=== PATIENT | female | born 1985 | race Caucasian/White ===

== ENCOUNTER → 2017-08-31 11:38 | Outpatient (CLI) | payer OTHER, SELFPAY ==
[2017-08-31 11:41] LABS: Microscopic, Urine URINE MICROSCOPIC (MICROSCOPIC)
[2017-08-31 12:18] LABS: Basophils # 0.1 K/mm3 (0-0.2); Basophils % 0.5 % (0.1-2.0); Eosinophils # 0.1 K/mm3 (0.0-0.4); Eosinophils % 1.3 % (0.1-12.0); Hematocrit 42.2 % (37.0-47.0); Hemoglobin 13.9 g/dL (12.2-16.2); Lymphocytes # 3.2 K/mm3 (0.7-4.5); Lymphocytes % 32.7 K/mm3 (10-50); Mean Corpuscular HGB Conc 32.9 g/dL (31.8-35.4); Mean Corpuscular Hemoglobin 30.1 pg (27.0-31.2); Mean Corpuscular Volume 91.6 fl (81-99); Monocytes # 0.4 K/mm3 (0.1-1.0); Monocytes % 3.5 % (1.7-9.3); Neutrophils # 6.1 K/mm3 (1.8-7.8); Neutrophils % 61.9 % (37.0-80.0); Platelet Count 373 K/mm3 (142-424); Red Cell Distribution Width 12.2 % (11.5-17.5); White Blood Count 9.9 K/mm3 (4.8-10.8)
[2017-08-31 12:19] LABS: Appearance,Urine CLOUDY (Clear); Bilirubin,Urine Negative (Negative); Blood, Urine 2+ (Negative); Color,Urine YELLOW (Yellow); Glucose,Urine (UA) Negative (Negative); Ketones,Urine Negative (Negative); Leukocyte Esterase,Urine TRACE (Negative); Nitrate,Urine Negative (Negative); PH,Urine 5.5 (5.0-8.5); Protein,Urine Negative (Negative); Specific Gravity, Urine >= 1.030 (1.005-1.030); Urobilinogen,Urine 0.2 EU/dl (0.2)
[2017-08-31 12:27] LABS: Bacteria,Urine 4+ /lpf; Mucus,Urine 4+ /lpf
[2017-08-31 13:20] LABS: Alanine Aminotransferase 29 U/L (12-78); Albumin Level 4.1 gm/dL (3.4-5.0); Albumin/Globulin Ratio 1.1 (1.1-1.8); Alkaline Phosphatase 79 U/L (46-116); Anion Gap 17.1 mEq/L (5-15); Aspartate Amino Transferase 19 U/L (15-37); Bilirubin,Total 0.8 mg/dL (0.2-1.0); Blood Urea Nitrogen 12 mg/dL (7-18); Carbon Dioxide 21 mmol/L (21.0-32.0); Chloride 104 mmol/L (98-107); Creatinine,Serum 0.75 mg/dL (0.55-1.02); Estimated Glomerular Filt Rate 90 ml/min (>60); GFR (African American) 108 ML/MIN (>60); Globulin 3.9 gm/dl (1.3-3.2); Glucose 143 mg/dL (74-106); Potassium 4.1 mmoL/L (3.5-5.1); Sodium 138 mmol/L (136-145)
== END ==
PROVIDERS: Visit Provider Obstetrics & Gynecology
DX: Z01.818 Encounter for other preprocedural examination (principal)
CPT/HCPCS: 36415; 80053; 81001; 85025; 87086

== ENCOUNTER 2017-09-04 06:03 | Day surgery (SDC) | payer OTHER, SELFPAY ==
[2017-09-03 13:48] VITALS: BMI 33.7
[2017-09-04] VITALS (9 sets, daily range): BP systolic 96–128; BP diastolic 59–92; PULSE 79–103; RESP 16–22; TEMP 36.4–36.7; O2SAT 91–100
[2017-09-04 06:24] LABS: Urine Pregnancy, HCG Qual. Negative (Negative)
--- NOTE | 2017-09-04 06:57 | HMH.ANESCL ---
[facility] Anesthesia Checklist - Patient Identification Patient Identification: Arm Band - Structural Data Admitted From: Home Consent for Planned Operative Procedure(s) Verified: Yes Verified Documents: Surgical Consent, History and Physical - NPO Status Verified Time NPO: 00:00 - Additional verifications Patient : No Anesthesia Reactions: No - Airway Assessment C-Spine Mobility Assessed: Yes TMJ Mobility Assessed: Yes Dentition: Good Dentition - Neurological Assessment Level of Consciousness: Awake Hx Seizures: No Numbness or tingling in extremities: No - Anesthesia Plan Anesthesia Risk discussed: Yes Anesthesia Plan: Verified ASA Class: II Anesthesia Type: General [facility] Anesthesia HX I have reviewed the patient's past medical history: Yes Medical History: Denies:: Cancer, Diabetes Mellitus Type 1, Diabetes Mellitus Type 2, MRSA, Seizures Other Medical History: Reports: Other. Denies: Blood Transfusion Reaction Amputation: No Fractures: No *Family Hx:: Coronary Artery Disease, Heart Attack, Hypertension
--- NOTE | 2017-09-04 07:33 | HMH.OPNOTE ---
Date of procedure: 09/04/17 Pre-op Diagnosis:: Cervical dysplasia Post-op Diagnosis:: Cervical dysplasia Procedure performed:: Dilatation and curettage, cone biopsy of the cervix Surgeon:: Gerardo Gtz MD DAIRY MANAGER:: Other (Lb Adame DAIRY MANAGER) Anesthesia: GETA Estimated blood loss (mL): 30 Operative findings:: Cervical dysplasia Operative note:: After the patient was prepped and draped in usual fashion and general anesthesia was admitted, a weighted speculum was placed within the posterior fourchette of the vagina, and the cervix was bathed in Lugol's solution, nonstaining areas being noted. The anterior lip of the cervix was grasped with a single tooth tenaculum, and the uterus was sounded to 7 cm, and easily dilated to #14 Hegar dilators. A sharp curette was introduced into the endometrial cavity, with retrieval of a small amount of mucoid tissue. The cervix was then infused with a dilute solution of Marcaine, as a local anesthetic, and dilute Pitressin, for hemostasis. Ligatures of 2-0 Vicryl were placed at 3 and 9:00, also for hemostasis. Using a #11 blade, a wide shallow cone was cut, encompassing all nonstaining areas. The base was excised, and the cone edges were cauterized. Monsell's solution was used for further hemostasis. The sponge and needle counts correct. The estimated blood loss was 30 cc. The patient tolerated the procedure well, and was taken to PACU in excellent condition. She will be discharged today, if her vital signs are stable. Condition: stable Disposition: same day Specimens:: Uterine curettings and cervical cone Complications:: None
--- NOTE | 2017-09-04 07:37 | P.OP_ITS ---
Date of procedure: 09/04/17 Pre-op Diagnosis:: Cervical dysplasia Post-op Diagnosis:: Cervical dysplasia Procedure performed:: Dilatation and curettage, cone biopsy of the cervix Surgeon:: Gerardo Gtz MD INFORMATION TECHNOLOGY ARCHITECT:: Other (Lb Adame INFORMATION TECHNOLOGY ARCHITECT) Anesthesia: GETA Estimated blood loss (mL): 30 Operative findings:: Cervical dysplasia Operative note:: After the patient was prepped and draped in usual fashion and general anesthesia was admitted, a weighted speculum was placed within the posterior fourchette of the vagina, and the cervix was bathed in Lugol's solution, nonstaining areas being noted. The anterior lip of the cervix was grasped with a single tooth tenaculum, and the uterus was sounded to 7 cm, and easily dilated to #14 Hegar dilators. A sharp curette was introduced into the endometrial cavity, with retrieval of a small amount of mucoid tissue. The cervix was then infused with a dilute solution of Marcaine, as a local anesthetic, and dilute Pitressin, for hemostasis. Ligatures of 2-0 Vicryl were placed at 3 and 9:00, also for hemostasis. Using a #11 blade, a wide shallow cone was cut, encompassing all nonstaining areas. The base was excised, and the cone edges were cauterized. Monsell's solution was used for further hemostasis. The sponge and needle counts correct. The estimated blood loss was 30 cc. The patient tolerated the procedure well, and was taken to PACU in excellent condition. She will be discharged today, if her vital signs are stable. Condition: stable Disposition: same day Specimens:: Uterine curettings and cervical cone Complications:: None
--- NOTE | 2017-09-04 07:42 | HMH.ANESI ---
[facility] Anesthesia Record Part I Intake, IV Amount: 700 Estimated blood loss (mL): 40 Urine output (mL): 0 Blood Products used (#): none Blood Pressure: 108/59 SaO2: 91 Pulse Rate: 89 Respiratory Rate: 16 Temperature: 97.6 F Patient is:: Drowsy Stable to PACU at:: 07:37
--- NOTE | 2017-09-04 07:43 | HMH.ANESII ---
[facility] Anesthesia Record Part II Discharge Time: 08:07 Destination: [facility] PACU nurse assessment reviewed?: Yes Patient Condition:: Good Anesthesia Complications:: None
--- NOTE | 2017-09-04 07:44 | P.PN_ITS ---
[facility] Anesthesia Record Part II Discharge Time: 08:07 Destination: [facility] PACU nurse assessment reviewed?: Yes Patient Condition:: Good Anesthesia Complications:: None
[2017-09-04 08:37] LABS: Hematocrit 38.7 % (37.0-47.0); Hemoglobin 12.5 g/dL (12.2-16.2)
== END 2017-09-04 08:48 | disposition home or self-care (01) ==
LOC: OR 06:05
PROVIDERS: Visit Provider Obstetrics & Gynecology
PROC: (CPT 57520; principal; 2017-09-04 07:30)
DX: N87.9 Dysplasia of cervix uteri, unspecified (principal)
CPT/HCPCS: 57520; 36415; 81025; 85014; 85018; 96372; 96374; J2405

== ENCOUNTER 2020-07-10 11:16 | Emergency (ER) | payer OTHER, SELFPAY ==
[2020-07-10 11:35] VITALS: BP 126/88; PULSE 102; RESP 19; TEMP 36.9; O2SAT 98; BMI 38.4
[2020-07-10 11:43] VITALS: BP 126/88; PULSE 102; RESP 19; TEMP 36.9; O2SAT 98
--- NOTE | 2020-07-10 11:45 | HMH.EDUTC ---
[facility] [place] Clinical Impression: Nausea vomiting and diarrhea, Cough Disposition: Home, Self-Care Condition on Discharge: Good Instructions: Cough, Nausea and Vomiting-Adult, Diarrhea, DI for COVID-19 (Suspected or Confirmed ), Coronavirus Disease 2019, Preventing the Spread of Coronavirus Discharge Instructions Additional Instructions: *Monitor Temp, Over the counter Motrin or Tylenol as directed/as needed Tylenol every 4 hours and Motrin every 6 hours (as long as your family doctor has told you that you can take it) for fever or pain. and straight to ER if unable to lower temp less than 101.0 after medication given *Warm salt water gargles may help to soothe the throat *Throat Lozenges *Warm fluids like tea with honey may help to soothe the throat *Sleep elevated *Humidifier/Vaporizer ? Avoid fruit juices, as these do not replace minerals and can actually increase diarrhea. ? Children and adults can use sports drinks to replenish electrolytes. Younger children and infants should use products formulated for children, like oral rehydration solutions. ? Eat food in small amounts and let your stomach recover. ? Get lots of rest. You may feel tired or weak. ? No greasy or fried foods for the next 24-48 hours BRAT diet Bananas Rice Apples and Toone ? Make sure to drink plenty of liquids ? Return if needed ? Straight to ER if any life threatening symptoms ? Zofran as prescribed ? Follow up with family doctor in the next 48-72 hours if no improvement or any worsening of symptoms Follow up IMMEDIATELY for new or worsening symptoms or no Noticeable improvement over the next 48-72 hours. 911 for difficulty breathing or swallowing You were tested for today for COVID19 your test result should be back in the next 24-48 hours, you may call to the [facility] to see if your test results are back in the next 48 hours [phone] [facility] hours are 9am-9pm You was given a handout with instructions for Self Quarantine and Self isolation for while you wait on test results and what to do if they are positive If you are positive the Health Dept will be contacting you also Prescriptions: Brompheniramine/Pseudoephed/Dm [Bromfed Dm Cough Syrup] 5 - 10 ml PO Q46H PRN #150 ml PRN Reason: Cough Transmission Status: P[facility] to [facility] Ondansetron [Zofran 4mg ODT] 4 mg PO TIDP PRN #9 tab PRN Reason: Nausea Transmission Status: Pending to [facility] Referrals: Chel Pool PA [Primary Care Provider] - As needed Forms: Work/School Release Time of Disposition: 11:54 Medical Decision Making - James Inquiry Pt receiving controlled substance: No James was queried for this patient: No Vital Signs: 07/10/20 11:35 07/10/20 11:43 Temperature 98.4 F 98.4 F Temperature Source Oral Pulse Rate 102 H Pulse Rate [Right Brachial] 102 H Respiratory Rate 19 19 Blood Pressure 126/88 Blood Pressure [Right Arm] 126/88 Blood Pressure Mean [Right Arm] 100 Blood Pressure Source [Right Arm] Automatic Cuff Blood Pressure Position [Right Arm] Sitting 02 Sat by Pulse Oximetry 98 Oxygen Delivery Method Room Air Orders (Tests/Meds): ORDERS Category Date Time Status Covid-19 Nasal PCR ([facility]) Routine Lab 07/10/20 11:24 Ordered [facility] HPI - General Stated complaint: diarrhea,vomiting,cough Time Seen by Provider: 07/10/20 11:50 Mode of Arrival: Ambulatory Source of Information: Patient Limitations: No Limitations Description of Symptoms (Recalled from Triage Doc. by RN): PATEINT C/O COUGH, DIARRHEA, AND VOMITING SINCE THIS MORNING. REQUESTING COVID TEST HEENT Symptoms (Recalled from RN notes): No Resp Symptoms (Recalled from RN notes): Yes Skin Symptoms (Recalled from RN notes): No MS Symptoms (Recalled from RN notes): No Functional Status (Recalled from RN notes): WNL - History of Present Illness Provider Complaint: Patient state that she wasnt feeling well yesterday and had some vomiting and diarrhea rodrigo
--- NOTE | 2020-07-10 20:55 | PC.NURSE ---
ATTEMPTED TO [facility] PT ABOUT COVID TEST RESULTS, NO ANSWER. WILL TRY AGAIN LATER
--- NOTE | 2020-07-11 10:49 | PC.NURSE ---
PT NOTIFIED OF POSITIVE COVID RESULTS
== END 2020-07-10 12:03 | disposition home or self-care (01) ==
PROVIDERS: Emergency Provider Nurse Practitioner; PCP Physician Assistant
DX: U07.1 COVID-19 (principal)
CPT/HCPCS: 99202; G0463; U0003

== ENCOUNTER 2020-07-21 10:29 | Emergency (ER) | payer OTHER, SELFPAY ==
[2020-07-21 10:35] VITALS: BP 151/76; PULSE 118; RESP 20; TEMP 37; O2SAT 96; BMI 38.6
--- NOTE | 2020-07-21 11:05 | HMH.EDUTC ---
[facility] Disposition Clinical Impression: COVID-19 Disposition: Home, Self-Care Condition on Discharge: Good Instructions: DI for COVID-19 (Suspected or Confirmed ), Preventing the Spread of Coronavirus Discharge Instructions Additional Instructions: Drink plenty of fluids. Take tylenol for pain or fever. Follow up with your regular doctor. GO TO THE ER FOR ANY WORSENING SYMPTOMS Referrals: Chel Pool PA [Primary Care Provider] - Forms: Work/School Release Time of Disposition: 11:07 Medical Decision Making - Medical Records Medical records reviewed: No: I reviewed the patient's medical records. - James Inquiry Pt receiving controlled substance: No Vital Signs: 07/21/20 10:35 07/21/20 11:08 Temperature 98.6 F 98.6 F Temperature Source Oral Pulse Rate 118 H Pulse Rate [Right Brachial] 118 H Respiratory Rate 20 20 Blood Pressure 151/76 H Blood Pressure [Right Arm] 151/76 H Blood Pressure Mean [Right Arm] 101 Blood Pressure Source [Right Arm] Automatic Cuff Blood Pressure Position [Right Arm] Sitting 02 Sat by Pulse Oximetry 96 Oxygen Delivery Method Room Air [facility] [place] HPI - General Stated complaint: covid test Time Seen by Provider: 07/21/20 11:05 Mode of Arrival: Ambulatory Source of Information: Patient Limitations: No Limitations Description of Symptoms (Recalled from Triage Doc. by RN): PATIENT REQUESTING COVID RE-TEST. TESTED POSITIVE ON 07/10/20. DENIES SYMPTOMS AT THIS TIME HEENT Symptoms (Recalled from RN notes): No Resp Symptoms (Recalled from RN notes): No Skin Symptoms (Recalled from RN notes): No MS Symptoms (Recalled from RN notes): No Functional Status (Recalled from RN notes): WNL - History of Present Illness Provider Complaint: She has had covid-19. She is here today to get a test in hopes of it being negative so she can go back to work. - Related Data Home Medications Medication Instructions Recorded Confirmed olopatadine 0.2 % eye drops ml OPHTHALMIC 10/20/19 Previous Rx's Medication Instructions Recorded medroxyprogesterone 150 mg/mL 150 mg IM [id number] #1 ml 10/20/19 intramuscular syringe Brompheniramine/Pseudoephed/Dm 5 - 10 ml PO Q46H PRN #150 ml 07/10/20 [Bromfed Dm Cough Syrup] Ondansetron [Zofran 4mg ODT] 4 mg PO TIDP PRN #9 tab 07/10/20 Allergies Allergy/AdvReac Type Severity Reaction Status Date / Time No Known Allergies Allergy Verified 06/26/20 08:53 - Worker's Comp Is this a Worker's Comp case?: No [facility] History - Hepatitis A Screen Drug use history?: No High risk sexual behaviors?: No History of sexually transmitted infection?: No Currently employed?: No Childcare worker?: No Do you have indoor plumbing?: Yes Do you have electricity?: Yes Attestation statement:: This patient has been screened for Hepatitis A risk factors. I have reviewed the patient's past medical history: Yes Medical History: Denies:: Cancer, Diabetes Mellitus Type 1, Diabetes Mellitus Type 2, MRSA, Seizures Other Medical History: Reports: Other. Denies: Blood Transfusion Reaction Comment: HPV Other Surgeries: Yes: Colonoscopy, Other Amputation: No Fractures: No Comment: D&C, Cone Bx--09/04/2017 - Social History Smoking Status: Never smoker Tobacco Type: cigarettes # Packs/Day (cigarettes): 0 #Yrs smoked (if former smoker): 0 Alcohol Intake: never Alcohol Intake Frequency:: other Substance Use Type: denies use Occupational Status: other Housing: house Household Members: family Family Hx:: Heart Attack, Hypertension WIRE BASKET MAKER history: Non-contributory ROS Obtained: Yes All systems reviewed & no additional complaints - Constitutional Constitutional: Reports system reviewed and no additional complaints, except as docu - Eyes Eyes: Reports system reviewed and no additional complaints, except as docu - ENT Ears, Nose, Mouth, and Throat: Reports system reviewed and no additional complaints, except as docu - Car
[2020-07-21 11:08] VITALS: BP 151/76; PULSE 118; RESP 20; TEMP 37; O2SAT 96
--- NOTE | 2020-07-21 17:15 | PC.NURSE ---
VOICEMAIL LEFT FOR PATIENT TO RETURN CALL
--- NOTE | 2020-07-21 18:15 | PC.NURSE ---
PATIENT RETURNED CALL, INFORMED OF POSITIVE COVID RESULTS
== END 2020-07-21 11:12 | disposition home or self-care (01) ==
PROVIDERS: Emergency Provider Nurse Practitioner Family; PCP Physician Assistant
DX: U07.1 COVID-19 (principal)
CPT/HCPCS: 99202; G0463; U0003

== ENCOUNTER → 2021-04-13 09:40 | Outpatient (CLI) | payer OTHER, SELFPAY ==
[2021-04-13 12:00] LABS: Coronavirus 19, PCR Not Detected (NotDetected); Influenza A, PCR Not Detected (NotDetected); Influenza B, PCR Not Detected (NotDetected)
== END ==
PROVIDERS: PCP Physician Assistant; Visit Provider Internal Medicine Adolescent Medicine
DX: Z20.822 Contact with and (suspected) exposure to COVID-19 (principal)
CPT/HCPCS: C9803; U0003; U0005

== ENCOUNTER → 2021-05-08 15:00 | Outpatient (CLI) | payer OTHER, SELFPAY ==
--- NOTE | 2021-05-08 15:00 | CA_ITS ---
APPROVED REPORT EXAM: Comprehensive 2D, Doppler, and color-flow Echocardiogram Caustic Strength Inspector: Yahaira Singh RDCS Ht: 5 ft 4 in Wt: 210lbs BSA: 2.00 BP: 123/85 mmHg Indications: soa htn dm hlp 2D Dimensions LVOT 1.68 cm (M/F) 1.5-2.5 M-Mode Dimensions RVDd 1.68 cm (0.9-2.6) LA Diam 3.12 cm (1.9-4.0) LVDd 4.79 cm (3.5-5.7) Ao Diam 3.19 cm (2.0-3.7) LVDs 3.89 cm (3.5-5.7) IVSd 0.64 cm (0.6-1.1) PWd 0.50 cm (0.6-1.1) EF (Teich) 38.80% FS 18.80% EDV (Teich) 107.00 mL TAPSE 1.58 (<1.7) ESV (Teich) 65.50 mL LV Diastology E Decel Time 273.00 (160-240 msec) E/A Ratio 0.9 MED E' 7.20 (< 7 cm/sec) E'/MED E' Ratio 11.33 (>14) LAT E' 7.60 (<10 cm/sec) E/LAT E' Ratio 10.74 (>14) Mitral Valve MV E Max Fercho. 82.00 (40-130 cm/s) MV A Velocity 96.00 (40-130 cm/s) E/A Ratio 0.85 MV Decel. Time 273.00 (160-240 ms) MV PHT 80.00 ms Left Ventricle Left atrium is mildly enlarged, left ventricle is normal size, mild concentric left ventricular hypertrophy, hyperdynamic left ventricular systolic function, visually estimated ejection fraction was 65% with no regional wall motion abnormality, grade 1 diastolic dysfunction seen without tissue Doppler evidence of raise left atrial pressure. Right Ventricle Right atrium and right ventricle are normal size and contractility. Aortic Valve Aortic valve is minimally thickened and fibrosed, there is no aortic stenosis or aortic insufficiency. Mitral Valve Mitral valve is grossly normal, there is trace mitral regurgitation. Tricuspid Valve Tricuspid grossly normal, there is trace tricuspid regurgitation, tricuspid regurgitation jet velocity is inadequate for calculation of the right ventricular systolic pressure. Pulmonic Valve Pulmonic valve is poorly visualized. Great Vessels Aortic root is normal size. Inferior vena cava is normal size with normal inspiratory collapse. Pericardium No significant pericardial effusion noted. Conclusion 1. Normal left ventricular size, mild concentric left ventricular hypertrophy, visually estimated ejection fraction over 65% with no regional wall motion abnormality, grade 1 diastolic dysfunction seen without tissue Doppler evidence of raise left atrial pressure. 2. Trace mitral and tricuspid regurgitation. 3. No significant pericardial effusion noted. 4. Inferior vena cava is normal size with normal inspiratory collapse. Electronically signed by : Hayden Dewey MD 05/08/2021 21:06:28
== END ==
PROVIDERS: PCP Physician Assistant; Visit Provider Physician Assistant
DX: R00.0 Tachycardia, unspecified (principal); I10 Essential (primary) hypertension; E78.49 Other hyperlipidemia; E78.5 Hyperlipidemia, unspecified; Z82.49 Family history of ischemic heart disease and other diseases of the circulatory system
CPT/HCPCS: 93306

== ENCOUNTER → 2021-05-16 09:18 | Outpatient (CLI) | payer OTHER, SELFPAY ==
--- NOTE | 2021-05-16 09:19 | CA_ITS ---
APPROVED REPORT EXAM: Comprehensive 2D, Doppler, and color-flow Echocardiogram Information Security Associate: Suzanne Kaplan RT(R) Ht: 5 ft 4 in Wt: 220lbs BSA: 2.04 BP: 154/84 mmHg Indications: SOA, HTN, DM, hyperlipidemia, family history of HD Stress Test Details HR Max Heart Rate (APMHR): 184.688513 bpm Target HR (85% APMHR): 156.466674 bpm BP ECG Conclusion 1. Patient exercised on Chance protocol achieved 10.1 METs of workload on treadmill, the blood pressure response to exercise was adequate, there was no exercise-induced chest discomfort, EKG was negative for ischemia. 2. Normal left ventricular systolic function at rest, with exercise there is increase in contractility of all the segments of the myocardium with hyperdynamic left ventricular systolic response, no obvious segmental wall motion abnormality with exercise to suggest underlying ischemic heart disease. 3. Normal exercise stress echo. Electronically signed by : Hayden Dewey MD 05/17/2021 13:00:01
--- NOTE | 2021-05-16 09:19 | CA_ITS ---
APPROVED REPORT Exam: Exercise Treadmill Technologist: [place]ita [place], Ht: 5 ft 4 in Wt: 210 lbs BSA: 2.00 m2 HR: 96 bpm BP: 133/84 mmHg Rhythm: NSR, NORMAL Medical History Medical History: HTN, Hyperlipidemia Medications: Metoprolol,,,,, Atorvastatin,,,,, DePO-PROVERA,,,,, Repatha,,,,, Allergies: No known drug allergies Cardiac Risk Factors: HTN, Hyperlipidemia, FHX of CAD Stress Test Details Test: Manual Treadmill, Exercise stress testing was performed using a modified Chance protocol. HR Resting HR: 92 bpm Max Heart Rate (APMHR): 184.731378 bpm Max HR Achieved: 190 bpm Target HR (85% APMHR): 156.835408 bpm % of APMHR: 103.26 Recovery HR: 106 bpm BP Resting BP: 133/84 mmHg Max BP: 142/66 mmHg Recovery BP: 142.0/66.0 mmHg ECG Resting ECG: NSR, NORMAL Clinical Exercise duration: 07:29 min Highest Stage Achieved: Exercise capacity: 10.1 METs Stress ECG Conclusion MAX HR: 190. % OF PM: 103%. MAX BP 142/66. METS 10.1. TEST STOPPED DUE TO SOA, FATIGUE. ALLOWING FOR MOTION ARTIFACT, THE ST RESPONSE TO EXERCISE IS WITHIN NORMAL. NORMAL GXT. ECHO IMAGES REPORTED SEPARATELY. Test Summary REST . . . . . . . Standing REST . . . . . . . Sitting REST 05:14 0.0 0.0 92 . 133/ 84 . . Stage 1 01:00 10.0 1.7 121 . . . . Stage 1 02:00 10.0 1.7 136 . . . . Stage 1 03:00 10.0 1.7 139 . . . . Stage 2 01:00 12.0 2.5 146 . . . . Stage 2 02:00 12.0 2.5 163 . . . . Stage 2 03:00 12.0 2.5 169 . . . . Stage 3 01:00 14.0 3.4 186 . . . . Stage 3 01:29 14.0 0.0 190 . . . Stop exercise at 07:29 RECOVERY . . . . . . . Protocol changed to Manual Treadmill RECOVERY 01:00 0.0 0.0 147 . . . . RECOVERY 02:00 0.0 0.0 125 . . . . RECOVERY 03:00 0.0 0.0 115 . 131/ 80 . . RECOVERY 04:00 0.0 0.0 108 . 131/ 80 . . RECOVERY 05:00 0.0 0.0 108 . 142/ 66 . . RECOVERY 05:25 0.0 0.0 106 . 142/ 66 . . Electronically signed by : Hayden Dewey MD 05/17/2021 12:58:23
== END ==
PROVIDERS: PCP Physician Assistant; Visit Provider Physician Assistant
DX: R00.0 Tachycardia, unspecified (principal); I10 Essential (primary) hypertension; E78.5 Hyperlipidemia, unspecified; E78.49 Other hyperlipidemia; Z82.49 Family history of ischemic heart disease and other diseases of the circulatory system
CPT/HCPCS: 93017; 93350

== ENCOUNTER → 2021-07-01 12:22 | Outpatient (CLI) | payer OTHER, SELFPAY ==
[2021-07-01 14:08] LABS: Alanine Aminotransferase 32 U/L (12-78); Albumin Level 4.8 g/dl (3.5-5.0); Alkaline Phosphatase 90 U/L (38-126); Aspartate Amino Transferase 30 U/L (14-36); Bilirubin,Direct 0.1 mg/dl (0.0-0.4); Bilirubin,Indirect 1.5 mg/dL (0.0-0.9); Bilirubin,Total 1.6 mg/dl (0.2-1.3); Bilirubin,Unconjugated 1.5 mg/dL (0.0-1.1); Chol/HDL Ratio 3.2 (1-3.5); Cholesterol 138 mg/dl (140-200); HDL Cholesterol 43 mg/dl (40-60); Total Protein,Serum 7.9 g/dl (6.3-8.2); Triglycerides 130 mg/dl (30-150); VLDL Cholesterol 26 mg/dL (0-40)
[2021-07-01 14:19] LABS: Direct LDL Cholesterol 80.01 mg/dL (100-129)
== END ==
PROVIDERS: PCP Physician Assistant; Visit Provider Physician Assistant
DX: E78.5 Hyperlipidemia, unspecified (principal); E78.01 Familial hypercholesterolemia; I10 Essential (primary) hypertension; Z82.49 Family history of ischemic heart disease and other diseases of the circulatory system
CPT/HCPCS: 36415; 80061; 80076

== ENCOUNTER 2024-06-09 14:30 | Outpatient (CLI) | payer BC, SELFPAY ==
[2024-06-09 14:57] LABS: Basophils % 0.4 % (0.1-2.0); Eosinophils # 0.1 K/mm3 (0.0-0.4); Eosinophils % 1.2 % (0.1-12.0); Hematocrit 40.9 % (37.0-47.0); Hemoglobin 13.6 g/dL (12.2-16.2); Lymphocytes % 30.1 % (10-50); Mean Corpuscular HGB Conc 33.3 g/dL (31.8-35.4); Mean Corpuscular Hemoglobin 30.2 pg (27.0-31.2); Mean Corpuscular Volume 90.7 fl (81-99); Mean Platelet Volume 8.9 fl (7.4-10.4); Monocytes # 0.6 K/mm3 (0.1-1.0); Monocytes % 6.5 % (1.7-9.3); Neutrophils # 6.1 K/mm3 (1.8-7.8); Neutrophils % 61.6 % (37.0-80.0); Platelet Count 471 K/mm3 (142-424); Red Blood Count 4.51 M/mm3 (4.20-5.40); White Blood Count 9.8 K/mm3 (4.8-10.8)
[2024-06-09 15:11] LABS: Alanine Aminotransferase 47 U/L (12-78); Albumin Level 4.5 g/dl (3.5-5.0); Alkaline Phosphatase 85 U/L (38-126); Aspartate Amino Transferase 38 U/L (14-36); Bilirubin,Direct 0.2 mg/dl (0.0-0.4); Bilirubin,Indirect 1.4 mg/dL (0.0-0.9); Bilirubin,Total 1.6 mg/dl (0.2-1.3); Bilirubin,Unconjugated 1.3 mg/dL (0.0-1.1); Blood Urea Nitrogen 8 mg/dl (7-17); Calcium 9.8 mg/dl (8.4-10.2); Carbon Dioxide 22 mmol/L (22.0-30.0); Chloride 107 mmol/L (98-107); Chol/HDL Ratio 4.5 (1-3.5); Cholesterol 180 mg/dl (140-200); Estimated Glomerular Filt Rate 93 ml/min (>60); GFR (African American) 113 ML/MIN (>60); Glucose 84 mg/dl (74-100); HDL Cholesterol 40 mg/dl (40-60); Sodium 139 mmol/L (136-145); Total Protein,Serum 7.3 g/dl (6.3-8.2); Triglycerides 197 mg/dl (30-150); VLDL Cholesterol 39 mg/dL (0-40)
[2024-06-09 15:12] LABS: Anion Gap 14.1 mEq/L (5-15); Potassium 4.1 mmoL/L (3.5-5.1)
[2024-06-09 15:21] LABS: Direct LDL Cholesterol 112.96 mg/dL (100-129)
[2024-06-09 15:27] LABS: Free T4 (Free Thyroxine) 0.98 ng/dl (0.78-2.19)
[2024-06-09 15:41] LABS: Thyroid Stimulating Hormone 2.22 uIU/mL (0.465-4.68)
== END 2024-06-09 23:59 | disposition home or self-care (01) ==
LOC: LAB 14:31
PROVIDERS: PCP Physician Assistant; Visit Provider Physician Assistant
DX: E78.2 Mixed hyperlipidemia (principal); I10 Essential (primary) hypertension; Z82.49 Family history of ischemic heart disease and other diseases of the circulatory system
CPT/HCPCS: 36415; 80048; 80061; 80076; 84439; 84443; 85025